=== PATIENT | female | born 1950 | race American Indian/Alaskan Native ===

== ENCOUNTER 2019-09-15 12:55 | Emergency (ER) | payer MEDICARE ==
[2019-09-15] MEDS ORDERED: Sodium Chloride 0.9% 10 ML Syringe FLUSH PRN (13:49)
--- NOTE | 2019-09-15 14:08 | EDM.PDOC ---
ED HPI GENERAL MEDICAL PROBLEM - General Chief Complaint: Chest Pain Stated Complaint: PAIN UNDER BOTH BREASTS Time Seen by Provider: 09/15/19 13:42 Source of Information: Reports: Patient History Limitations: Reports: No Limitations - History of Present Illness INITIAL COMMENTS - FREE TEXT/NARRATIVE: Patient is a 69-year-old female who presents to the emergency department with complaints of bilateral chest pain directly below her breasts. Symptoms began around 3:00 this morning. She states the pain comes and goes. Pain was not present at the time of exam. She states that when the pain occurred she did feel little short of breath, however she feels that this may have been due to her feeling anxious. She did recently have a compression fracture of her lower back. Since this time she has been a lot less active and has been "laying around a lot. She has been taking ibuprofen 800 mg for the pain of that. Her last dose was this morning. She is also had a slight cough, but has not had any fever, chills, nausea, vomiting, or diarrhea. Bilateral Breast Pain Score (Numeric/FACES): 0 - Related Data Allergies Allergy/AdvReac Type Severity Reaction Status Date / Time nitrofurantoin Allergy Chest Pain Verified 09/15/19 13:25 [From Macrobid] Home Meds: Home Meds Dulaglutide [Trulicity] 1.5 mg SQ WEEKLY 09/15/19 [History] Enalapril [Vasotec] 10 mg PO DAILY 09/15/19 [History] Gabapentin [Neurontin] 900 mg PO BEDTIME 09/15/19 [History] Insulin Aspart [NovoLOG] 0 unit SQ WITHMEALSANDBED 09/15/19 [History] atorvaSTATin [Lipitor] 10 mg PO BEDTIME 09/15/19 [History] Past Medical History HEENT History: Reports: Cataract Cardiovascular History: Reports: High Cholesterol Musculoskeletal History: Reports: Other (See Below) Other Musculoskeletal History: fractured vertebrae Neurological History: Reports: Neuropathy, Diabetic Endocrine/Metabolic History: Reports: Diabetes, Type I - Infectious Disease History Infectious Disease History: Reports: Chicken Pox - Past Surgical History Musculoskeletal Surgical History: Reports: Shoulder Surgery Social & Family History - Family History Family Medical History: Noncontributory - Tobacco Use Smoking Status *Q: Never Smoker Second Hand Smoke Exposure: No ED ROS GENERAL - Review of Systems Review Of Systems: Comprehensive ROS is negative, except as noted in HPI. ED EXAM, GENERAL - Physical Exam Exam: See Below Exam Limited By: No Limitations General Appearance: Alert, WD/WN, No Apparent Distress Respiratory/Chest: No Respiratory Distress, Lungs Clear, Normal Breath Sounds, No Accessory Muscle Use, Other (mild tenderness to palpation to bilateral lower chest wall.) Cardiovascular: Normal Peripheral Pulses, Regular Rate, Rhythm, No Edema, No Gallop, No JVD, No Murmur, No Rub Extremities: Normal Inspection, Normal Range of Motion, Non-Tender, Normal Capillary Refill, No Pedal Edema Neurological: Alert, Oriented, CN II-XII Intact, Normal Cognition, Normal Gait, Normal Reflexes, No Motor/Sensory Deficits Psychiatric: Normal Affect, Normal Mood Skin Exam: Warm, Dry, Intact, Normal Color, No Rash EKG INTERPRETATION EKG Date: 09/15/19 Time: 13:55 Rhythm: NSR Rate (Beats/Min): 98 [place]: Normal P-Wave: Present QRS: Normal ST-T: Normal QT: Normal Comparison: NA - No Prior EKG EKG Interpretation Comments: Probably left atrial enlargement. No ischemia. EKG interpreted by Dr. Magallon. Course - Vital Signs Last Recorded V/S: Last Vital Signs Temp 98.8 F 09/15/19 13:30 Pulse 97 09/15/19 13:30 Resp 16 09/15/19 13:30 BP 138/70 09/15/19 13:30 Pulse Ox 98 09/15/19 13:30 - Orders/Labs/Meds Orders: Active Orders 24 hr Category Date Time Status EKG Documentation Completion [RC] STAT Care 09/15/19 13:50 Active Peripheral IV Care [RC] . DIRECTED Care 09/15/19 13:50 Active Peripheral IV Insertion Adult [OM.PC] Stat Oth 09/15/19 13:49 Ordered Labs: Laboratory Tests 09/15/19 09/15/19 09/15/19 Range/Units 14:03 14:03 14:03 WBC 7.13 (3.98-10.04) K/mm3 RBC 4.36 (3.98-5.22) M/mm3 Hgb 12.4 (11.2-15.7) gm/dl Hct 38.6 (34.1-44.9) % MCV 88.5 (79.4-94.8) fl MCH 28.4 (25.6-32.2) pg MCHC 32.1 L (32.2-35.5) g/dl RDW Std Deviation 41.9 (36.4-46.3) fL Plt Count 405 H (182-369) K/mm3 MPV 9.9 (9.4-12.3) fl Neut % (Auto) 54.9 (34.0-71.1) % Lymph % (Auto) 35.2 (19.3-51.7) % [place] % (Auto) 6.9 (4.7-12.5) % Eos % (Auto) 1.3 (0.7-5.8) Baso % (Auto) 0.6 (0.1-1.2) % Neut # (Auto) 3.92 (1.56-6.13) K/mm3 Lymph # (Auto) 2.51 (1.18-3.74) K/mm3 [place] # (Auto) 0.49 H (0.24-0.36) K/mm3 Eos # (Auto) 0.09 (0.04-0.36) K/mm3 Baso # (Auto) 0.04 (0.01-0.08) K/mm3 D-Dimer, Quantitative 1.19 H (0.19-0.50) mg/L Sodium 141 (136-145) mEq/L Potassium 4.1 (3.5-5.1) mEq/L Chloride 105 (98-107) mEq/L Carbon Dioxide 26 (21-32) mEq/L Anion Gap 14.1 (5-15) BUN 18 (7-18) mg/dL Creatinine 0.6 (0.55-1.02) mg/dL Est Cr Clr Drug Dosing 86.05 mL/min Estimated GFR (MDRD) > 60 (>60) mL/min BUN/Creatinine Ratio 30.0 H (14-18) Glucose 276 H (80-115) mg/dL Calcium 9.0 (8.5-10.1) mg/dL Total Bilirubin 0.5 (0.2-1.0) mg/dL AST 10 L (15-37) U/L ALT 17 (14-59) U/L Alkaline Phosphatase 163 H (46-116) U/L Troponin I < 0.017 (0.00-0.056) ng/mL Total Protein 6.9 (6.4-8.2) g/dl Albumin 3.5 (3.4-5.0) g/dl Globulin 3.4 gm/dL Albumin/Globulin Ratio 1.0 (1-2) Meds: Medications Discontinued Medications Generic Name Dose Route Start Last Admin Trade Name Freq PRN Reason Stop Dose Admin Sodium Chloride 100 mls @ 4 mls/sec 09/15/19 15:52 09/15/19 16:11 Normal Saline IV 09/15/19 15:53 4 mls/sec ONETIME ONE Administration Iopamidol 100 ml 09/15/19 15:52 09/15/19 16:11 Isovue-370 (76%) IVPUSH 09/15/19 15:53 100 ml ONETIME ONE Administration Sodium Chloride 10 ml 09/15/19 13:49 Saline Flush FLUSH ASDIRECTED PRN Keep Vein Open - Re-Assessments/Exams Free Text/Narrative Re-Assessment/Exam: 09/15/19 15:24 Patient's EKG was normal. Hematology was significant for d-dimer elevated at 1.19. Patient has not had any pain or swelling to her extremities, and there was no swelling or redness appreciated on exam. We will do a CT Angio of the chest to rule out PE. Departure - Departure Time of Disposition: 16:51 Disposition: Home, Self-Care 01 Condition: Good Clinical Impression: Atypical chest pain Instructions: Nonspecific Chest Pain, Adult Referrals: PCP,Not In Area [Primary Care Provider] - Forms: ED Department Discharge Additional Instructions: You were seen in the emergency department today for bilateral lower chest pain that happened earlier in the day. Your work-up included an EKG of your heart, blood work, x-ray, and a CT angiogram of your chest. The results were found to be normal. There is no evidence that the pain was caused by your heart. There are no blood clots in your lungs. As we discussed, the source of the pain was most likely musculoskeletal. You may continue to use your ibuprofen as needed. If you should experience any new or worsening symptoms of concern, please do not hesitate to return to the emergency department. Sepsis Event Note - Evaluation Sepsis Screening Result: No Definite Risk - Focused Exam Vital Signs: Vital Signs Temp Pulse Resp BP Pulse Ox 09/15/19 13:30 98.8 F 97 16 138/70 98 Date Exam was Performed: 09/15/19 Time Exam was Performed: 21:30 - My Orders Last 24 Hours: My Active Orders 09/15/19 13:49 Peripheral IV Insertion Adult [OM.PC] Stat 09/15/19 13:50 EKG Documentation Completion [RC] STAT Peripheral IV Care [RC] . DIRECTED - Assessment/Plan Last 24 Hours: My Active Orders 09/15/19 13:49 Peripheral IV Insertion Adult [OM.PC] Stat 09/15/19 13:50 EKG Documentation Completion [RC] STAT Peripheral IV Care [RC] . DIRECTED
--- NOTE | 2019-09-15 15:10 | CR ---
Chest: PA and lateral views of the chest were obtained. Comparison: No previous chest x-ray. Heart size is normal. Upper mediastinum is normal. Lungs show no acute parenchymal change. Slight degenerative change is scattered within the spine. Impression: 1. Nothing acute is appreciated on 2 view chest x-ray. Diagnostic code #2 Study was dictated in MDT
[2019-09-15] MEDS ORDERED: Iopamidol 755 Mg/ML 100 ML Bottle IVPUSH ONE (15:52)
[2019-09-15] MEDS ORDERED: Sodium Chloride 0.9% 100 ML IV ONE (15:52)
--- NOTE | 2019-09-15 16:38 | CT ---
CT chest Technique: Multiple axial sections were obtained from above the lung apices inferiorly through the lung bases. Intravenous contrast was utilized. Study performed as a pulmonary angiogram protocol. Comparison: Prior chest x-ray performed earlier on the same day (2:04 PM). Findings: Pulmonary arteries are well-opacified. No filling defects are seen to indicate pulmonary embolism. Aorta shows no aneurysm or dissection. Mild atherosclerotic calcification is seen. Fairly prominent atherosclerotic change is noted within the coronary arteries. Visualized upper abdominal structures shows no discrete abnormality. Lung window settings were obtained. No acute parenchymal change is seen. Bone window settings were reviewed. Scattered degenerative change is noted within the spine. Mild compression deformit is y noted within L1. Age of this is indeterminate. Impression: 1. No findings of pulmonary embolism. 2. Mild compression deformity of L1, age of this is indeterminate. 3. Fairly prominent atherosclerotic change is noted within the coronary arteries. Diagnostic code #3 Study was dictated in MDT
== END 2019-09-15 17:05 | disposition home or self-care (01) ==
LOC: JD.ED 12:55
DX: R07.89 Other chest pain (principal); E78.00 Pure hypercholesterolemia, unspecified; E10.40 Type 1 diabetes mellitus with diabetic neuropathy, unspecified; Z88.1 Allergy status to other antibiotic agents; Z79.899 Other long term (current) drug therapy
CPT/HCPCS: 36415; 71046; 71275; 80053; 84484; 85025; 85379; 93005; 99285; J7050; Q9967

== ENCOUNTER 2020-06-13 16:42 | Emergency (ER) | payer MEDICARE ==
--- NOTE | 2020-06-13 18:18 | CR ---
Pelvis and left hip: AP view of the pelvis was obtained as well as AP and frog-leg lateral view of the left hip. Joint space within the right hip is fairly well preserved. Mild joint space narrowing is seen within the left hip. Sacroiliac joints appear within normal limits. No acute fracture or dislocation is appreciated. Impression: 1. Mild joint space narrowing within the left hip. 2. Other findings believed to be chronic as noted above. Diagnostic code #2
--- NOTE | 2020-06-13 18:28 | CR ---
Lumbar spine: AP, lateral and coned-down lateral view centered to the lumbosacral junction were obtained. Comparison: Prior CT angiogram study of 09/15/19. Findings: There is a moderate compression deformity being seen of L1. This is noted on the prior CT chest study and appears stable. Severe disc space narrowing at L5-S1 with vacuum disc phenomena. Minimal posterior disc space narrowing noted at L2-3 and L1-2. Mild scattered endplate osteophytes are seen. No abnormal subluxation is appreciated. Vascular calcification is noted within the abdominal aorta. Impression: 1. Chronic appearing findings as described above. Diagnostic code #2
--- NOTE | 2020-06-13 18:35 | EDM.PDOC ---
ED HPI GENERAL MEDICAL PROBLEM - General Chief Complaint: Lower Extremity Injury/Pain Stated Complaint: L SIDE HIP PAIN Time Seen by Provider: 06/13/20 16:48 Source of Information: Reports: Patient, RN Notes Reviewed History Limitations: Reports: No Limitations - History of Present Illness INITIAL COMMENTS - FREE TEXT/NARRATIVE: Patient is a 7-year-old female presenting to the emergency department with complaints of left hip pain. She states she woke with the symptoms this morning. She has had no recent injury, however she does have a history of compression fractures to her lumbar spine as well as osteoporosis. She took a [place] earlier for pain with little relief. She complains of intermittent shooting pains down her left leg. Denies any bowel or bladder dysfunction. Left Hip Pain Score (Numeric/FACES): 10 - Related Data Allergies Allergy/AdvReac Type Severity Reaction Status Date / Time nitrofurantoin AdvReac Severe Chest Pain Verified 06/13/20 16:54 [From Macrobid] Home Meds: Home Meds Dulaglutide [Trulicity] 1.5 mg SQ WEEKLY 09/15/19 [History] Enalapril [Vasotec] 10 mg PO DAILY 09/15/19 [History] Gabapentin [Neurontin] 900 mg PO BEDTIME 09/15/19 [History] Insulin Aspart [NovoLOG] 0 unit SQ WITHMEALSANDBED 09/15/19 [History] atorvaSTATin [Lipitor] 10 mg PO BEDTIME 09/15/19 [History] metFORMIN [Glucophage XR] 500 mg PO BIDMEALS 06/13/20 [History] predniSONE [Prednisone] 20 mg PO ASDIRECTED #15 tablet 06/13/20 [Rx] Past Medical History HEENT History: Reports: Cataract Cardiovascular History: Reports: High Cholesterol Musculoskeletal History: Reports: Back Pain, Chronic, Fracture, Osteoporosis, Other (See Below) Other Musculoskeletal History: fractured vertebrae Neurological History: Reports: Neuropathy, Diabetic Endocrine/Metabolic History: Reports: Diabetes, Type II - Infectious Disease History Infectious Disease History: Reports: Chicken Pox - Past Surgical History Musculoskeletal Surgical History: Reports: Shoulder Surgery Social & Family History - Family History Family Medical History: No Pertinent Family History - Tobacco Use Tobacco Use Status *Q: Never Tobacco User - Caffeine Use Caffeine Use: Reports: Coffee - Recreational Drug Use Recreational Drug Use: No Review of Systems - Review of Systems Review Of Systems: Comprehensive ROS is negative, except as noted in HPI. ED EXAM, GENERAL - Physical Exam Exam: See Below General Appearance: Alert, WD/WN, No Apparent Distress Respiratory/Chest: No Respiratory Distress, Lungs Clear, Normal Breath Sounds, No Accessory Muscle Use, Chest Non-Tender Cardiovascular: Normal Peripheral Pulses, Regular Rate, Rhythm, No Edema, No Gallop, No JVD, No Murmur, No Rub Extremities: Normal Inspection, Other (Tenderness to the posterior left hip. No tenderness over the greater trochanter. Mild left-sided SI joint tenderness.) Course - Vital Signs Last Recorded V/S: Last Vital Signs Temp 97.6 F 06/13/20 16:48 Pulse 106 H 06/13/20 16:48 Resp 18 06/13/20 16:48 BP 144/83 H 06/13/20 16:48 Pulse Ox 97 06/13/20 16:48 - Re-Assessments/Exams Free Text/Narrative Re-Assessment/Exam: 06/13/20 18:54 X-ray of the lumbar spine and hip show chronic degenerative changes with no acute abnormalities. She does have disc base narrowing L5-S1 as well as a compression deformity at L1. We will treat with prednisone. Discussed with patient that she would likely experience elevated blood sugars while on this, but she can compensate with her sliding scale NovoLog. She states that she has an appointment with pain doctor to have an injection in her back in a few weeks. She may use the Stan[place] that she has at home for pain as well. She would like a paper prescription so that she may pick it up at the pharmacy in [facility]. Discharge instructions as documented. Departure - Departure Time of Disposition: 18:54 Disposition: Home, Self-Care 01 Condition: Good Clinical Impression: Hip pain, left - Discharge Information Prescriptions: predniSONE [Prednisone] 20 mg PO ASDIRECTED #15 tablet Instructions: Hip Pain Referrals: PCP,Not In Area [Primary Care Provider] - Forms: ED Department Discharge Additional Instructions: You were seen in the emergency department today for left hip pain. X-rays were completed and showed no acute abnormalities. You have been started on a course of prednisone which is a steroid to decrease inflammation in the joint. Take this medication as prescribed. Be aware that this will likely cause elevations in your blood sugars see may compensate for it with your sliding scale NovoLog. You may continue to use your [place] as needed for pain. Applying heat to the area would also be beneficial. Return to ER as needed. Sepsis Event Note (ED) - Evaluation Sepsis Screening Result: No Definite Risk - Focused Exam Vital Signs: Vital Signs Temp Pulse Resp BP Pulse Ox 06/13/20 16:48 97.6 F 106 H 18 144/83 H 97
== END 2020-06-13 19:08 | disposition home or self-care (01) ==
LOC: JD.ED 16:42
DX: M25.552 Pain in left hip (principal); E78.00 Pure hypercholesterolemia, unspecified; E11.40 Type 2 diabetes mellitus with diabetic neuropathy, unspecified; Z88.1 Allergy status to other antibiotic agents; Z79.4 Long term (current) use of insulin; Z79.899 Other long term (current) drug therapy
CPT/HCPCS: 72100; 72100-26; 73502-26-LT; 73502-LT; 99283-25

== ENCOUNTER 2021-02-13 17:49 | Emergency (ER) | payer MEDICARE ==
--- NOTE | 2021-02-13 18:17 | EDM.PDOC ---
ED HPI GENERAL MEDICAL PROBLEM - General Chief Complaint: Respiratory Problem Stated Complaint: COVID SYMPTOMS Time Seen by Provider: 02/13/21 18:10 Source of Information: Reports: Patient, RN Notes Reviewed History Limitations: Reports: No Limitations - History of Present Illness INITIAL COMMENTS - FREE TEXT/NARRATIVE: Patient is a 70-year-old female who presents to the ER for the evaluation of her [id number] symptoms. Patient notes she has been around her granddaughter, who has attended [employer], for which there is known Covid disease. The patient states that she has been coughing pretty much nonstop, and is now coughing up some green-colored sputum. She has had a fever at home along with chills for about the last 5 days. O2 sats at the time of triage anywhere from 92 to 94%. Patient has a primary care provider at [facility]. She does have a history of diabetes and blood pressure issues. Patient's not had any nausea/vomiting/diarrhea. Patient has not gotten the COVID-19 vaccine. - Related Data Allergies Allergy/AdvReac Type Severity Reaction Status Date / Time nitrofurantoin AdvReac Severe Airway Verified 02/13/21 18:13 [From Macrobid] Tightness Home Meds: Home Meds Dulaglutide [Trulicity] 1.5 mg SQ WEEKLY 09/15/19 [History] Enalapril [Vasotec] 10 mg PO DAILY 09/15/19 [History] Insulin Aspart [NovoLOG] 0 unit SQ WITHMEALSANDBED 09/15/19 [History] atorvaSTATin [Lipitor] 10 mg PO BEDTIME 09/15/19 [History] metFORMIN [Glucophage XR] 500 mg PO BIDMEALS 06/13/20 [History] Past Medical History HEENT History: Reports: Cataract Cardiovascular History: Reports: High Cholesterol, Hypertension Musculoskeletal History: Reports: Back Pain, Chronic, Fracture, Osteoporosis, Other (See Below) Other Musculoskeletal History: fractured vertebrae Neurological History: Reports: Neuropathy, Diabetic Endocrine/Metabolic History: Reports: Diabetes, Type II - Infectious Disease History Infectious Disease History: Reports: Chicken Pox - Past Surgical History Musculoskeletal Surgical History: Reports: Shoulder Surgery Social & Family History - Family History Family Medical History: No Pertinent Family History - Caffeine Use Caffeine Use: Reports: Coffee ED ROS GENERAL - Review of Systems Review Of Systems: Comprehensive ROS is negative, except as noted in HPI. ED EXAM, GENERAL - Physical Exam Exam: See Below Exam Limited By: No Limitations General Appearance: Alert, WD/WN, No Apparent Distress Respiratory/Chest: No Respiratory Distress, Lungs Clear, No Accessory Muscle Use, Chest Non-Tender, Decreased Breath Sounds (diffuse bilaterally) Cardiovascular: Normal Peripheral Pulses, Regular Rate, Rhythm, No Edema Peripheral Pulses: 2+: Radial (L), Radial (R) Extremities: Normal Inspection, Normal Capillary Refill Neurological: Alert, Oriented, Normal Cognition, No Motor/Sensory Deficits Psychiatric: Normal Affect, Normal Mood Skin Exam: Warm, Dry, Intact, Normal Color, No Rash Course - Vital Signs Last Recorded V/S: Last Vital Signs Temp 96.3 F L 02/13/21 18:12 Pulse 111 H 02/13/21 18:12 Resp 20 02/13/21 18:12 BP 145/80 H 02/13/21 18:12 Pulse Ox 94 L 02/13/21 18:12 - Orders/Labs/Meds Orders: Active Orders 24 hr Category Date Time Status POC Glucose [Blood Glucose Check, Bedside] [RC] ONETIME Care 02/13/21 20:34 Ordered Peripheral IV Care [RC] . DIRECTED Care 02/13/21 18:18 Ordered Vital Signs [RC] Q15M Care 02/13/21 19:25 Ordered EPINEPHrine [Adrenalin] Med 02/13/21 19:25 Active 0.3 mg IM ONETIME PRN Famotidine [Pepcid] Med 02/13/21 19:25 Active 20 mg IVPUSH ONETIME PRN Sodium Chloride 0.9% [Saline Flush] Med 02/13/21 18:18 Active 10 ml FLUSH ASDIRECTED PRN Sodium Chloride 0.9% [Saline Flush] Med 02/13/21 19:30 Active 30 ml FLUSH ASDIRECTED diphenhydrAMINE [Benadryl] Med 02/13/21 19:25 Active 50 mg IVPUSH ONETIME PRN methylPREDNISolone Sod Succ [Solu-MEDROL] Med 02/13/21 19:25 Active 125 mg IVPUSH ONETIME PRN Peripheral IV Insertion Adult [OM.PC] Routine Oth 02/13/21 18:18 Ordered Medication Orders Diphenhydramine HCl (Diphenhydramine 50 Mg/Ml Sdv) 50 mg IVPUSH ONETIME PRN PRN Reason: hypersensitivity reaction Epinephrine HCl (Epinephrine 1 Mg/Ml Sdv) 0.3 mg IM ONETIME PRN PRN Reason: hypersensitivity reaction Famotidine (Famotidine 20 Mg/2 Ml Sdv) 20 mg IVPUSH ONETIME PRN PRN Reason: hypersensitivity reaction Methylprednisolone Sodium Succinate (Methylprednisolone Sodium Succinate 125 Mg /2 Ml Sdv) 125 mg IVPUSH ONETIME PRN PRN Reason: hypersensitivity reaction Sodium Chloride (Sodium Chloride 0.9% 10 Ml Syringe) 10 ml FLUSH ASDIRECTED PRN PRN Reason: Keep Vein Open Last Admin: 02/13/21 18:41 Dose: 10 ml Documented by: SOLOMON Sodium Chloride (Sodium Chloride 0.9% 10 Ml Syringe) 30 ml FLUSH ASDIRECTED LANCE Labs: Laboratory Tests 02/13/21 02/13/21 02/13/21 Range/Units 18:05 18:40 18:40 WBC 5.65 (3.98-10.04) K/mm3 RBC 4.24 (3.98-5.22) M/mm3 Hgb 12.2 (11.2-15.7) gm/dl Hct 37.3 (34.1-44.9) % MCV 88.0 (79.4-94.8) fl MCH 28.8 (25.6-32.2) pg MCHC 32.7 (32.2-35.5) g/dl RDW Std Deviation 40.9 (36.4-46.3) fL Plt Count 230 D (182-369) K/mm3 MPV 10.1 (9.4-12.3) fl Neut % (Auto) 69.8 (34.0-71.1) % Lymph % (Auto) 18.8 L (19.3-51.7) % [place] % (Auto) 10.8 (4.7-12.5) % Eos % (Auto) 0 L (0.7-5.8) Baso % (Auto) 0.2 (0.1-1.2) % Neut # (Auto) 3.95 (1.56-6.13) K/mm3 Lymph # (Auto) 1.06 L (1.18-3.74) K/mm3 [place] # (Auto) 0.61 H (0.24-0.36) K/mm3 Eos # (Auto) 0.00 L (0.04-0.36) K/mm3 Baso # (Auto) 0.01 (0.01-0.08) K/mm3 PT (9.7-12.0) SECONDS INR APTT (21.7-31.4) SECONDS D-Dimer, Quantitative (0.19-0.50) mg/L Sodium (136-145) mEq/L Potassium (3.5-5.1) mEq/L Chloride (98-107) mEq/L Carbon Dioxide (21-32) mEq/L Anion Gap (5-15) BUN (7-18) mg/dL Creatinine (0.55-1.02) mg/dL Est Cr Clr Drug Dosing mL/min Estimated GFR (MDRD) (>60) mL/min BUN/Creatinine Ratio (14-18) Glucose (70-99) mg/dL Calcium (8.5-10.1) mg/dL Magnesium (1.8-2.4) mg/dL Total Bilirubin (0.2-1.0) mg/dL AST (15-37) U/L ALT (14-59) U/L Alkaline Phosphatase (46-116) U/L C-Reactive Protein 7.1 H* (<1.0) mg/dL Total Protein (6.4-8.2) g/dl Albumin (3.4-5.0) g/dl Globulin gm/dL Albumin/Globulin Ratio (1-2) SARS-CoV-2 RNA (WILMER) Positive H (NEGATIVE) 02/13/21 02/13/21 Range/Units 18:40 18:40 WBC (3.98-10.04) K/mm3 RBC (3.98-5.22) M/mm3 Hgb (11.2-15.7) gm/dl Hct (34.1-44.9) % MCV (79.4-94.8) fl MCH (25.6-32.2) pg MCHC (32.2-35.5) g/dl RDW Std Deviation (36.4-46.3) fL Plt Count (182-369) K/mm3 MPV (9.4-12.3) fl Neut % (Auto) (34.0-71.1) % Lymph % (Auto) (19.3-51.7) % [place] % (Auto) (4.7-12.5) % Eos % (Auto) (0.7-5.8) Baso % (Auto) (0.1-1.2) % Neut # (Auto) (1.56-6.13) K/mm3 Lymph # (Auto) (1.18-3.74) K/mm3 [place] # (Auto) (0.24-0.36) K/mm3 Eos # (Auto) (0.04-0.36) K/mm3 Baso # (Auto) (0.01-0.08) K/mm3 PT 9.9 (9.7-12.0) SECONDS INR < 0.93 APTT 27.2 (21.7-31.4) SECONDS D-Dimer, Quantitative 1.38 H (0.19-0.50) mg/L Sodium 136 (136-145) mEq/L Potassium 3.9 (3.5-5.1) mEq/L Chloride 99 (98-107) mEq/L Carbon Dioxide 28 (21-32) mEq/L Anion Gap 12.9 (5-15) BUN 16 (7-18) mg/dL Creatinine 0.8 (0.55-1.02) mg/dL Est Cr Clr Drug Dosing 61.26 mL/min Estimated GFR (MDRD) > 60 (>60) mL/min BUN/Creatinine Ratio 20.0 H (14-18) Glucose 276 H (70-99) mg/dL Calcium 8.0 L (8.5-10.1) mg/dL Magnesium 1.5 L (1.8-2.4) mg/dL Total Bilirubin 0.5 (0.2-1.0) mg/dL AST 20 (15-37) U/L ALT 24 (14-59) U/L Alkaline Phosphatase 79 (46-116) U/L C-Reactive Protein (<1.0) mg/dL Total Protein 7.0 (6.4-8.2) g/dl Albumin 3.2 L (3.4-5.0) g/dl Globulin 3.8 gm/dL Albumin/Globulin Ratio 0.8 L (1-2) SARS-CoV-2 RNA (WILMER) (NEGATIVE) Meds: Medications Generic Name Dose Route Start Last Admin Trade Name Freq PRN Reason Stop Dose Admin Diphenhydramine HCl 50 mg 02/13/21 19:25 Diphenhydramine 50 Mg/Ml Sdv IVPUSH ONETIME PRN hypersensitivity reaction Epinephrine HCl 0.3 mg 02/13/21 19:25 Epinephrine 1 Mg/Ml Sdv IM ONETIME PRN hypersensitivity reaction Famotidine 20 mg 02/13/21 19:25 Famotidine 20 Mg/2 Ml Sdv IVPUSH ONETIME PRN hypersensitivity reaction Methylprednisolone Sodium Succinate 125 mg 02/13/21 19:25 Methylprednisolone Sodium Succinate 125 Mg/2 Ml Sdv IVPUSH ONETIME PRN hypersensitivity reaction Sodium Chloride 10 ml 02/13/21 18:18 02/13/21 18:41 Sodium Chloride 0.9% 10 Ml Syringe FLUSH 10 ml ASDIRECTED PRN Administration Keep Vein Open Sodium Chloride 30 ml 02/13/21 19:30 Sodium Chloride 0.9% 10 Ml Syringe FLUSH ASDIRECTED LANCE Discontinued Medications Generic Name Dose Route Start Last Admin Trade Name Freq PRN Reason Stop Dose Admin Hydromorphone HCl 0.5 mg 02/13/21 19:55 02/13/21 20:04 Hydromorphone 0.5 Mg/0.5 Ml Syringe IVPUSH 02/13/21 19:56 0.5 mg ONETIME ONE Administration CASIRIVIMAB/IMDEVIMAB 10 ml/ 110 mls @ 220 mls/hr 02/13/21 19:25 02/13/21 19:58 Sodium Chloride IV 02/13/21 19:54 220 mls/hr ONETIME ONE Administration - Re-Assessments/Exams Free Text/Narrative Re-Assessment/Exam: 02/13/21 18:42 Patient presents to the ER for [id number] symptoms, a Covid swab was obtained at time of triage, we will go ahead get IV placed, get some basic labs and a chest x-ray for ongoing evaluation. Highly likely the patient is suffering from COVID-19. 02/13/21 19:40 The patient did test positive for COVID-19 at this time, all other labs are pending somewhat, CBC has come back and is unremarkable, patient's D-dimer is elevated at 1.38, patient's metabolic panel and CRP are still pending. I spoke with the patient to provide information about Regeneron treatment. I offered them the "Patient and caregiver KATY Regeneron fact sheet" to read and review. I stated that the drug has been approved by an emergency use authorization (EUA) process and has not been fully FDA reviewed or approved. The patient meets the EUA requirements. I discussed there are other potential treatment options that are currently not FDA approved to treat COVID-19. I did offer an opportunity to ask questions and all questions were answered. The patient voiced understanding and agreed to proceed with the treatment. 02/13/21 19:50 Patient's x-ray demonstrates no sign of Covid pneumonia at this time, and the patient's blood sugar was 276, she does have her insulin supplies with her, and she would rather not get IV fluids, but take her sliding scale insulin for her blood sugar at this time. This is fine with me as she has been a longstanding diabetic. 02/13/21 20:46 The patient did receive Regeneron therapy, and had no adverse reactions with the initial therapy, we will go ahead and keep her around until at 9:30 PM, and likely discharge home with general recommendations. Departure - Departure Time of Disposition: 20:46 Disposition: Home, Self-Care 01 Condition: Good Clinical Impression: COVID-19 - Discharge Information *PRESCRIPTION DRUG MONITORING PROGRAM REVIEWED*: No *COPY OF PRESCRIPTION DRUG MONITORING REPORT IN PATIENT AL: No Instructions: COVID-19 Frequently Asked Questions, 10 Things You Can Do to Manage Your COVID-19 Symptoms at Home - [facility] (12/19/2019) Referrals: PCP,Not In Area [Primary Care Provider] - Forms: ED Department Discharge Additional Instructions: You were seen in the ER today for ongoing and/or worsening respiratory symptoms. Your chest x-ray showed no signs of pneumonia at this time. Your oxygen levels were acceptable at 93-94% on room air. You were given IV Regeneron therapy at today's visit, this medication is thought to work by making you a little less sick, and helps to decrease the length of time that you are sick. Please try to increase your oral fluid intake, and eat multiple small meals throughout the day, to keep yourself healthy. You need to keep yourself nourished in order to fight off this disease. You can try a liquid diet like gatorade/powerade as well to get your electrolytes. You may take 500 mg Tylenol every hours 6 hours for pain/fever relief. Do not exceed 4000 mg Tylenol in a 24-hour time span. However, running a fever is your body's natural response to illness, and it allows the body to develop antibodies to disease, we are recommending trying to limit the use of Tylenol as much as possible to allow your body's natural immune response. You have been given pulse oximeter to monitor your oxygen levels at home, you should place the monitor on your finger, and sit in a calm, quiet position for a few minutes and then record the number that is on the screen. If this consistently below 90% on room air without movement, this would be cause for concern to come back to the hospital for further management of your COVID-19 disease. Please follow all guidance set forth from [facility], regarding isolation purposes for your disease process. General isolation times are 10 days from when you started being symptomatic. Sepsis Event Note (ED) - Focused Exam Vital Signs: Vital Signs Temp Pulse Resp BP Pulse Ox 02/13/21 18:12 96.3 F L 111 H 20 145/80 H 94 L - My Orders Last 24 Hours: My Active Orders 02/13/21 18:18 Peripheral IV Care [RC] . DIRECTED Sodium Chloride 0.9% [Saline Flush] 10 ml FLUSH ASDIRECTED PRN Peripheral IV Insertion Adult [OM.PC] Routine 02/13/21 19:25 Vital Signs [RC] Q15M EPINEPHrine [Adrenalin] 0.3 mg IM ONETIME PRN Famotidine [Pepcid] 20 mg IVPUSH ONETIME PRN diphenhydrAMINE [Benadryl] 50 mg IVPUSH ONETIME PRN methylPREDNISolone Sod Succ [Solu-MEDROL] 125 mg IVPUSH ONETIME PRN 02/13/21 19:30 Sodium Chloride 0.9% [Saline Flush] 30 ml FLUSH ASDIRECTED 02/13/21 20:34 POC Glucose [Blood Glucose Check, Bedside] [RC] ONETIME - Assessment/Plan Last 24 Hours: My Active Orders 02/13/21 18:18 Peripheral IV Care [RC] . DIRECTED Sodium Chloride 0.9% [Saline Flush] 10 ml FLUSH ASDIRECTED PRN Peripheral IV Insertion Adult [OM.PC] Routine 02/13/21 19:25 Vital Signs [RC] Q15M EPINEPHrine [Adrenalin] 0.3 mg IM ONETIME PRN Famotidine [Pepcid] 20 mg IVPUSH ONETIME PRN diphenhydrAMINE [Benadryl] 50 mg IVPUSH ONETIME PRN methylPREDNISolone Sod Succ [Solu-MEDROL] 125 mg IVPUSH ONETIME PRN 02/13/21 19:30 Sodium Chloride 0.9% [Saline Flush] 30 ml FLUSH ASDIRECTED 02/13/21 20:34 POC Glucose [Blood Glucose Check, Bedside] [RC] ONETIME
[2021-02-13] MEDS ORDERED: Sodium Chloride 0.9% 10 ML Syringe FLUSH PRN (18:18)
[2021-02-13] MEDS ORDERED: Famotidine 20 MG/2 ML SDV IVPUSH PRN (19:25)
[2021-02-13] MEDS ORDERED: methylPREDNISolone Sodium Succinate 125 MG/2 ML SDV IVPUSH PRN (19:25)
[2021-02-13] MEDS ORDERED: diphenhydrAMINE 50 MG/ML SDV IVPUSH PRN (19:25)
[2021-02-13] MEDS ORDERED: EPINEPHrine 1 MG/ML SDV IM PRN (19:25)
[2021-02-13] MEDS ORDERED: Sodium Chloride 0.9% 10 ML Syringe FLUSH SCH (19:30)
--- NOTE | 2021-02-13 19:41 | CR ---
Chest: Frontal view of the chest was obtained. Comparison: Prior chest x-ray of 09/15/19. Heart size is within normal limits. Tortuous thoracic aorta is seen. Slight scattered areas of atelectasis are noted. Slight chronic increased lung markings are present. No definite acute parenchymal change is otherwise seen. Bony structures show nothing acute. Impression: 1. Mild scattered atelectasis and mild chronic interstitial change. 2. Nothing acute is otherwise seen on frontal chest x-ray. Diagnostic code #2
[2021-02-13] MEDS ORDERED: HYDROmorphone 0.5 MG/0.5 ML Syringe IVPUSH ONE (19:55)
== END 2021-02-13 21:50 | disposition home or self-care (01) ==
LOC: JD.ED 17:49
DX: U07.1 COVID-19 (principal); E78.00 Pure hypercholesterolemia, unspecified; I10 Essential (primary) hypertension; E11.40 Type 2 diabetes mellitus with diabetic neuropathy, unspecified; Z79.4 Long term (current) use of insulin; Z88.1 Allergy status to other antibiotic agents; Z79.899 Other long term (current) drug therapy
CPT/HCPCS: 36415; 71045; 80053; 82947; 83735; 85025; 85379; 85610; 85730; 86140; 96374; 99283; J1170; M0243; Q0243; U0002; 99284

== ENCOUNTER 2021-02-28 15:27 | Emergency (ER) | payer MEDICARE | END 2021-02-28 16:43 | disposition left against medical advice (07) | LOC: JD.ED 15:27 | DX: R10.9 Unspecified abdominal pain (principal); Z53.21 Procedure and treatment not carried out due to patient leaving prior to being seen by health care provider ==

== ENCOUNTER 2021-05-08 16:02 | Emergency (ER) | payer MEDICARE ==
[2021-05-08] MEDS ORDERED: FLU Vacc QS2021(65UP)/MF59C/PF 60 MCG/0.5 ML Syringe IM ONE (16:30)
[2021-05-08] MEDS ORDERED: Ketorolac 15 MG/ML SDV IM ONE (16:59)
--- NOTE | 2021-05-08 18:14 | EDM.PDOC ---
<Amilcar Curry - Last Filed: 05/08/21 19:07> ED HPI GENERAL MEDICAL PROBLEM - General Chief Complaint: Cardiovascular Problem Stated Complaint: SWOLLEN LEGS AND FEET Time Seen by Provider: 05/08/21 17:30 Source of Information: Reports: Patient History Limitations: Reports: No Limitations - History of Present Illness INITIAL COMMENTS - FREE TEXT/NARRATIVE: Patient is a 71-year-old female with a past medical history of diabetes presenting with a chief complaint of bilateral lower extremity pain. Patient reports burning and restless feeling in bilateral lower extremities. Patient reports symptom onset was yesterday. Does not find any improvement with exertion or rest. She has not taken any medication for this. Patient reports she feels like her legs are increasingly swollen compared to her baseline. Otherwise, she is not experiencing any chest pain or shortness of breath or fevers. Patient has no prior history of UTI or PE. Patient does have recent history of COVID-19 infection in January. Bilateral Leg Pain Score (Numeric/FACES): 9 - Related Data Allergies Allergy/AdvReac Type Severity Reaction Status Date / Time nitrofurantoin AdvReac Severe Airway Verified 05/08/21 16:14 [From Macrobid] Tightness Home Meds: Home Meds Enalapril [Vasotec] 10 mg PO DAILY 09/15/19 [History] Insulin Aspart [NovoLOG] 0 unit SQ WITHMEALSANDBED 09/15/19 [History] atorvaSTATin [Lipitor] 10 mg PO BEDTIME 09/15/19 [History] metFORMIN [Glucophage XR] 500 mg PO BIDMEALS 06/13/20 [History] Past Medical History HEENT History: Reports: Cataract Cardiovascular History: Reports: High Cholesterol, Hypertension Respiratory History: Reports: Pneumonia, Recurrent Genitourinary History: Reports: Renal Calculus, UTI, Recurrent FLOOR TECH History: Reports: Musculoskeletal History: Reports: Back Pain, Chronic, Fracture, Osteoporosis, Other (See Below) Other Musculoskeletal History: fractured vertebrae Neurological History: Reports: Neuropathy, Diabetic Endocrine/Metabolic History: Reports: Diabetes, Type II - Infectious Disease History Infectious Disease History: Reports: Chicken Pox, Novel Coronavirus - Past Surgical History Musculoskeletal Surgical History: Reports: Shoulder Surgery Social & Family History - Family History Family Medical History: No Pertinent Family History - Tobacco Use Tobacco Use Status *Q: Former Tobacco User Used Tobacco, but Quit: Yes Month/Year Tobacco Last Used: 1994 - Caffeine Use Caffeine Use: Reports: Coffee - Recreational Drug Use Recreational Drug Use: No ED ROS GENERAL - Review of Systems Review Of Systems: See Below Free Text/Narrative/Comment: In addition to that documented in the HPI above, the additional ROS was obtained: Constitutional: Denies fevers or chills Eyes: Denies vision changes ENMT: Denies sore throat CV: Denies chest pain Resp: Denies SOB GI: Denies vomiting or diarrhea : Denies painful urination MSK: Denies recent trauma Skin: Denies new rashes Neuro: Denies new numbness or tingling or weakness Endocrine: Denies unexpected weight loss Heme: Denies bleeding disorders ED EXAM, GENERAL - Physical Exam Exam: See Below Free Text/Narrative:: I have reviewed the triage vital signs Const: Well nourished, well developed, appears stated age Eyes: Pupils Equal and reactive to light bilaterally, no conjunctival injection HENT: No signs of trauma or swelling, Neck supple without meningismus CV: Regular Rate Rhythm, Warm, well-perfused extremities RESP: Unlabored respiratory effort GI: soft, non-tender, non-distended, no masses MSK: No gross deformities appreciated. No calf swelling or tenderness. No significant lower extremity edema Skin: Warm, dry. No rashes Neuro: Alert, debt collection specialist II-XII grossly intact. Sensation and motor function of extremities grossly intact. Psych: Appropriate mood and affect. Course - Re-Assessments/Exams Free Text/Narrative Re-Assessment/Exam: 05/08/21 19:07 Patient is 71-year-old female presenting with lower extremity pain and swelling. Laboratory studies otherwise unremarkable. Significant elevation of D-dimer. Patient underwent ultrasound of the bilateral lower extremities to evaluate and rule out DVT. She is pending ultimate disposition she can be discharged home with oral anticoagulation versus not anticoagulation if ultrasound is negative. Departure - Departure Disposition: Home, Self-Care 01 Clinical Impression: Bilateral leg pain Referrals: PCP,Not In Area [Primary Care Provider] - Forms: ED Department Discharge Additional Instructions: Return to the emergency room with any questions problems or worsening symptoms. Follow-up with your regular healthcare provider this next week for recheck. Sepsis Event Note (ED) - Evaluation Sepsis Screening Result: No Definite Risk <Kendall Magallon - Last Filed: 05/08/21 21:06> Course - Vital Signs Last Recorded V/S: Last Vital Signs Temp 36.9 C 05/08/21 16:10 Pulse 100 05/08/21 16:10 Resp 18 05/08/21 16:10 BP 154/87 H 05/08/21 16:10 Pulse Ox 96 05/08/21 16:10 - Orders/Labs/Meds Orders: Active Orders 24 hr Category Date Time Status Vaccine to be Administered/Admin Charge [RC] ASDIRECTED Care 05/08/21 16:27 Active Venous Doppler Lwr Ext Bi [US] Stat Exams 05/08/21 18:34 Taken Labs: Laboratory Tests 05/08/21 05/08/21 05/08/21 Range/Units 17:25 17:51 17:51 WBC 6.93 (3.98-10.04) K/mm3 RBC 3.96 L (3.98-5.22) M/mm3 Hgb 11.5 (11.2-15.7) gm/dl Hct 35.2 (34.1-44.9) % MCV 88.9 (79.4-94.8) fl MCH 29.0 (25.6-32.2) pg MCHC 32.7 (32.2-35.5) g/dl RDW Std Deviation 43.8 (36.4-46.3) fL Plt Count 332 D (182-369) K/mm3 MPV 9.8 (9.4-12.3) fl Neut % (Auto) 58.3 (34.0-71.1) % Lymph % (Auto) 29.7 (19.3-51.7) % [place] % (Auto) 9.7 (4.7-12.5) % Eos % (Auto) 1.3 (0.7-5.8) Baso % (Auto) 0.4 (0.1-1.2) % Neut # (Auto) 4.04 (1.56-6.13) K/mm3 Lymph # (Auto) 2.06 (1.18-3.74) K/mm3 [place] # (Auto) 0.67 H (0.24-0.36) K/mm3 Eos # (Auto) 0.09 (0.04-0.36) K/mm3 Baso # (Auto) 0.03 (0.01-0.08) K/mm3 D-Dimer, Quantitative 1.50 H (0.19-0.50) mg/L Sodium (136-145) mEq/L Potassium (3.5-5.1) mEq/L Chloride (98-107) mEq/L Carbon Dioxide (21-32) mEq/L Anion Gap (5-15) BUN (7-18) mg/dL Creatinine (0.55-1.02) mg/dL Est Cr Clr Drug Dosing mL/min Estimated GFR (MDRD) (>60) mL/min BUN/Creatinine Ratio (14-18) Glucose (70-99) mg/dL Calcium (8.5-10.1) mg/dL Total Bilirubin (0.2-1.0) mg/dL AST (15-37) U/L ALT (14-59) U/L Alkaline Phosphatase (46-116) U/L Total Protein (6.4-8.2) g/dl Albumin (3.4-5.0) g/dl Globulin gm/dL Albumin/Globulin Ratio (1-2) Urine Color Yellow (Yellow) Urine Appearance Clear (Clear) Urine pH 6.0 (5.0-8.0) Ur Specific [place] 1.025 (1.005-1.030) Urine Protein 2+ H (Negative) Urine Glucose (UA) Negative (Negative) Urine Ketones Negative (Negative) Urine Occult Blood Negative (Negative) Urine Nitrite Negative (Negative) Urine Bilirubin Negative (Negative) Urine Urobilinogen 0.2 (0.2-1.0) Ur Leukocyte Esterase Trace H (Negative) Urine RBC 0-5 (0-5) /hpf Urine WBC 0-5 (0-5) /hpf Ur Squamous Epith Cells 0-5 (0-5) /hpf Urine Bacteria Few (FEW) /hpf Urine Mucus Few (FEW) /hpf 05/08/21 Range/Units 17:51 WBC (3.98-10.04) K/mm3 RBC (3.98-5.22) M/mm3 Hgb (11.2-15.7) gm/dl Hct (34.1-44.9) % MCV (79.4-94.8) fl MCH (25.6-32.2) pg MCHC (32.2-35.5) g/dl RDW Std Deviation (36.4-46.3) fL Plt Count (182-369) K/mm3 MPV (9.4-12.3) fl Neut % (Auto) (34.0-71.1) % Lymph % (Auto) (19.3-51.7) % [place] % (Auto) (4.7-12.5) % Eos % (Auto) (0.7-5.8) Baso % (Auto) (0.1-1.2) % Neut # (Auto) (1.56-6.13) K/mm3 Lymph # (Auto) (1.18-3.74) K/mm3 [place] # (Auto) (0.24-0.36) K/mm3 Eos # (Auto) (0.04-0.36) K/mm3 Baso # (Auto) (0.01-0.08) K/mm3 D-Dimer, Quantitative (0.19-0.50) mg/L Sodium 143 (136-145) mEq/L Potassium 3.6 (3.5-5.1) mEq/L Chloride 106 (98-107) mEq/L Carbon Dioxide 27 (21-32) mEq/L Anion Gap 13.6 (5-15) BUN 21 H (7-18) mg/dL Creatinine 0.9 (0.55-1.02) mg/dL Est Cr Clr Drug Dosing 53.67 mL/min Estimated GFR (MDRD) > 60 (>60) mL/min BUN/Creatinine Ratio 23.3 H (14-18) Glucose 99 (70-99) mg/dL Calcium 9.6 D (8.5-10.1) mg/dL Total Bilirubin 0.4 (0.2-1.0) mg/dL AST 11 L (15-37) U/L ALT 15 (14-59) U/L Alkaline Phosphatase 90 (46-116) U/L Total Protein 7.3 (6.4-8.2) g/dl Albumin 3.6 (3.4-5.0) g/dl Globulin 3.7 gm/dL Albumin/Globulin Ratio 1.0 (1-2) Urine Color (Yellow) Urine Appearance (Clear) Urine pH (5.0-8.0) Ur Specific Ke[place] (1.005-1.030) Urine Protein (Negative) Urine Glucose (UA) (Negative) Urine Ketones (Negative) Urine Occult Blood (Negative) Urine Nitrite (Negative) Urine Bilirubin (Negative) Urine Urobilinogen (0.2-1.0) Ur Leukocyte Esterase (Negative) Urine RBC (0-5) /hpf Urine WBC (0-5) /hpf Ur Squamous Epith Cells (0-5) /hpf Urine Bacteria (FEW) /hpf Urine Mucus (FEW) /hpf Meds: Medications Discontinued Medications Generic Name Dose Route Start Last Admin Trade Name Krys PRN Reason Stop Dose Admin Influenza Virus Vaccine 60 mcg 05/08/21 16:30 05/08/21 17:06 Flu Vacc [id number])/[id number]/Pf 60 Mcg/0.5 Ml Syringe IM 05/08/21 16:31 60 mcg .ONCE ONE Administration Ketorolac Tromethamine 30 mg 05/08/21 16:59 05/08/21 17:07 Ketorolac 15 Mg/Ml Sdv IM 05/08/21 17:00 30 mg ONETIME ONE Administration - Re-Assessments/Exams Free Text/Narrative Re-Assessment/Exam: 05/08/21 21:03 Ultrasound examination of her bilateral lower leg veins is negative for DVT. I have reviewed this with the patient and she seems understand and wants to get going. Departure - Departure Time of Disposition: 21:04 Sepsis Event Note (ED) - Focused Exam Vital Signs: Vital Signs Temp Pulse Resp BP Pulse Ox 05/08/21 16:10 36.9 C 100 18 154/87 H 96
--- NOTE | 2021-05-09 07:08 | US ---
Bilateral lower extremity deep venous ultrasound: Duplex and color Doppler evaluation was obtained of the right and left common femoral, proximal greater saphenous, superficial femoral, popliteal, posterior tibial and peroneal veins. Comparison: No prior venous imaging is available. Findings: Visualized veins show normal phasic flow, augmentation and compression. Impression: 1. No findings of deep venous thrombosis within the right or left lower extremity. Diagnostic code #1 I agree with preliminary report from [facility], finalized on 05/08/21, 9:32 PM [employer], code 1
== END 2021-05-08 21:05 | disposition home or self-care (01) ==
LOC: JD.ED 16:02
DX: M79.661 Pain in right lower leg (principal); M79.662 Pain in left lower leg; E78.00 Pure hypercholesterolemia, unspecified; I10 Essential (primary) hypertension; E11.40 Type 2 diabetes mellitus with diabetic neuropathy, unspecified; Z87.891 Personal history of nicotine dependence; Z88.1 Allergy status to other antibiotic agents; Z79.4 Long term (current) use of insulin; Z79.899 Other long term (current) drug therapy
CPT/HCPCS: 36415; 80053; 81001; 85025; 85379; 90694; 93970; 96372; 99283; G0008; J1885

== ENCOUNTER 2021-08-27 18:00 | Emergency (ER) | payer MEDICARE | END 2021-08-27 19:15 | disposition home or self-care (01) | LOC: JD.ED 18:00 | DX: G89.29 Other chronic pain (principal); M54.50 Low back pain, unspecified; E78.00 Pure hypercholesterolemia, unspecified; I10 Essential (primary) hypertension; E11.9 Type 2 diabetes mellitus without complications; Z88.1 Allergy status to other antibiotic agents; Z79.4 Long term (current) use of insulin; Z79.899 Other long term (current) drug therapy | CPT/HCPCS: 99283 ==

== ENCOUNTER 2022-04-23 16:17 | Emergency (ER) | payer MEDICARE ==
[2022-04-23] MEDS ORDERED: HYDROmorphone 1 MG/ML Syringe IM ONE (16:45)
[2022-04-23] MEDS ORDERED: Promethazine 25 MG/ML SDV IM ONE (16:48)
[2022-04-23] MEDS ORDERED: Acetaminophen/HYDROcodone 325-5 MG Tab PO ONE (16:56)
== END 2022-04-23 17:40 | disposition home or self-care (01) ==
LOC: JD.ED 16:17
DX: M54.50 Low back pain, unspecified (principal); G89.29 Other chronic pain; E78.00 Pure hypercholesterolemia, unspecified; I10 Essential (primary) hypertension; E11.9 Type 2 diabetes mellitus without complications; Z88.8 Allergy status to other drugs, medicaments and biological substances; Z79.899 Other long term (current) drug therapy; Z79.4 Long term (current) use of insulin; Z79.84 Long term (current) use of oral hypoglycemic drugs
CPT/HCPCS: 99283; A9270; 99284

== ENCOUNTER 2022-06-16 16:01 | Emergency (ER) | payer MEDICARE ==
[2022-06-16] MEDS ORDERED: Sodium Chloride 0.9% 10 ML Syringe FLUSH PRN (17:01)
[2022-06-16] MEDS ORDERED: Ondansetron 4 MG/2 ML SDV IVPUSH ONE (17:01)
[2022-06-16] MEDS ORDERED: HYDROmorphone 0.5 MG/0.5 ML Syringe IVPUSH ONE (17:02)
[2022-06-16] MEDS ORDERED: Iopamidol 612 MG/ML 100 ML Bottle IVPUSH ONE (17:18)
[2022-06-16] MEDS ORDERED: Sodium Chloride 0.9% 10 ML Syringe FLUSH ONE (17:18)
== END 2022-06-16 19:42 | disposition home or self-care (01) ==
LOC: JD.ED 16:01
DX: K59.09 Other constipation (principal); E78.00 Pure hypercholesterolemia, unspecified; I10 Essential (primary) hypertension; E11.9 Type 2 diabetes mellitus without complications; Z86.16 Personal history of COVID-19; Z88.1 Allergy status to other antibiotic agents; Z79.4 Long term (current) use of insulin; Z79.899 Other long term (current) drug therapy
CPT/HCPCS: 36415; 74177; 74177-26; 80053; 83690; 85025; 96374; 96375; 99284-25; J1170; J2405; J3490; Q9967